=== PATIENT | male | born 1990 ===

== ENCOUNTER 2020-05-28 23:29 | Emergency (ER) | payer SELFPAY ==
[~2020-05-28] VITALS: Ht 175.3 cm; Wt 95.3 kg
[2020-05-28 23:34] VITALS: BP 158/94
== END 2020-05-29 00:51 | disposition left against medical advice (07) ==
LOC: ER 23:29
DX: R50.9 Fever, unspecified (principal); R06.02 Shortness of breath; Z53.21 Procedure and treatment not carried out due to patient leaving prior to being seen by health care provider